=== PATIENT | female | born 1970 | race Asian ===

== ENCOUNTER 2020-01-14 11:04 | Outpatient (CLI) | payer BC ==
--- NOTE | 2020-01-14 16:46 | ULT ---
ABDOMINAL ULTRASOUND: Comparison: None History: Abdominal pain Technique: Multiplanar grayscale and color Doppler images were obtained in a complete abdominal ultra sound. FINDINGS: The liver is normal in echogenicity without focal lesions or intrahepatic biliary dilatation. The gal lbladder is normal without stones, sludge, gallbladder wall thickening or pericholecystic fluid. The common bile duct is normal measuring 5 mm. The aorta and inferior vena cava are normal in caliber. The visualized portions of the pancreas are u nremarkable. The spleen is normal in echogenicity without focal lesions and measures 8.9 cm in length . Both kidneys are normal in echogenicity without hydronephrosis or calculi and measure 10.0 and 10.2 c m in length on the right and left, respectively. IMPRESSION: Unremarkable exam. POS: EAA
== END 2020-01-14 11:05 | disposition home or self-care (01) ==
LOC: SCSULT 11:04
PROVIDERS: ATTEND Family Medicine
DX: R10.9 Unspecified abdominal pain (principal)
CPT/HCPCS: 93975